=== PATIENT | male | born 2000 | race Caucasian/White ===

== ENCOUNTER 2020-03-17 10:32 | Emergency (ER) | payer SELFPAY ==
[2020-03-17 10:40] VITALS: BP 118/97; PULSE 101; RESP 20; TEMP 36.8; O2SAT 100
--- NOTE | 2020-03-17 11:18 | ED.WOUNDLAC ---
HPI - Wound/Laceration General Chief Complaint: Wound/Laceration Stated Complaint: lack to left wrist Time Seen by Provider: 03/17/20 10:45 Source: patient and RN notes reviewed Mode of arrival: ambulatory Limitations: no limitations History of Present Illness HPI narrative: Patient presents today complaining of a laceration to his left anterior forearm. He was moving a glass top patio table at home just prior to arrival, slicing his arm. He is up-to-date on his tetanus vaccine.He pressure wrapped his arm prior to arrival to stop the bleeding.He has not taken any medication for pain prior to arrival. Related Data Home Medications Medication Instructions Recorded Confirmed No Home Medications 03/17/20 03/17/20 Allergies Allergy/AdvReac Type Severity Reaction Status Date / Time No Known Allergies Allergy Verified 03/17/20 10:55 Review of Systems Review of Systems: Narrative: CONSTITUTIONAL: Denies body aches, fever, chills, or sweats. EYES: Denies visual changes, redness, or discharge. ENT: Denies rhinorrhea, congestion, sore throat, or otalgia. CARDIOVASCULAR: Denies chest pain, palpitations, or edema. RESPIRATORY: Denies cough or dyspnea. GASTROINTESTINAL: Denies abdominal pain, nausea, vomiting, or diarrhea. GENITOURINARY: Denies dysuria or hematuria. SKIN: Denies rash, itching. +Laceration to left forearm MUSCULOSKELETAL: Denies back pain, joint pain, or myalgia. NEUROLOGIC: Denies headache, numbness, tingling, or weakness. PSYCH: Denies depression or anxiety. PMFSH Comments At time of signature, I have reviewed and agree with nursing past medical, surgical, social and family history unless otherwise noted. Please see nursing chart for further information. There is no relevant family history pertinent to the presenting complaint Exam Narrative: Exam Narrative: GENERAL: Well-appearing, well-nourished, and in no acute distress. HEAD: Normocephalic, atraumatic. EYES: EOMI. No redness or drainage. Conjunctivae normal. ENT: Mucous membranes pink and moist. NECK: Normal AROM. CHEST: No respiratory distress. EXTREMITIES: Normal range of motion. No edema. SKIN: Warm, dry, no rash. Capillary refill normal. Normal skin turgor.Left distal anterior forearm: 2 lacerations- 1 is 1.5cm full thickness linear laceration, 1 is 1cm full thickness linear laceration. Minimal active bleeding. Distal sensation intact. Capillary refill normal. Radial pulse normal. Full range of motion of the wrist and elbow. NEURO: No focal deficits. Alert and oriented x3. Gait steady. PSYCH: Normal affect. No signs of depression or anxiety. Course Vital Signs Vital signs: Vital Signs Temperature 98.3 F 03/17/20 10:40 Pulse Rate 101 H 03/17/20 10:40 Respiratory Rate 20 03/17/20 10:40 Blood Pressure 118/97 H 03/17/20 10:40 Pulse Oximetry 100 03/17/20 10:40 Temperature 98.3 F 03/17/20 10:40 Pulse Rate 101 H 03/17/20 10:40 Respiratory Rate 03/17/20 10:40 Blood Pressure 118/97 H 03/17/20 10:40 Pulse Oximetry 100 03/17/20 10:40 Reviewed Procedures Laceration Laceration 1: Date: 03/17/20 Time: 11:00 Site: upper extremity Side (If applicable): left Size (cm): 1.5 Description: linear Depth: simple, single layer Local Anesthetic: lidocaine 1% Amount of anesthesia used (mL): 2 Pre-repair: wound explored and irrigated ====== Skin Level ====== Size (cm): 4-0 Number of sutures: 6 Technique: simple, interrupted ====== Subcutaneous Layer ====== ====== Muscle Layer ====== ====== Tendon Layer ====== Dressin.5cm lac received 4 sutures. 1cm laceration received 2 sutures. Dressed with nonadherent dressing. MDM - Wound/Laceration Differential Diagnosis Differential diagnosis: Likely laceration, abrasion and avulsion of skin Critical Care Time Critical Care Time Critical Care Time:
== END 2020-03-17 11:20 | disposition home or self-care (01) ==
PROVIDERS: Emergency Provider Nurse Practitioner
DX: S51.812A Laceration without foreign body of left forearm, initial encounter (principal); W25.XXXA Contact with sharp glass, initial encounter
CPT/HCPCS: 12001; 99212; G0463